=== PATIENT | female | born 1995 | race Caucasian/White ===

== ENCOUNTER 2020-11-15 14:55 | Emergency (ER) | payer MEDICAID ==
[2020-11-15] MEDS ORDERED: Ketorolac 60 MG/2 ML SDV IM ONE (15:21)
--- NOTE | 2020-11-15 15:21 | EDM.PDOC ---
ED HPI GENERAL MEDICAL PROBLEM - General Chief Complaint: Lower Extremity Injury/Pain Stated Complaint: R knee injury Time Seen by Provider: 11/15/20 15:05 Source of Information: Reports: Patient History Limitations: Reports: No Limitations - History of Present Illness INITIAL COMMENTS - FREE TEXT/NARRATIVE: This patient is a 25 year old female that presents to the ER. Patient reports that she has a condition where her knees dislocate and she puts back in place due to dysplasia Patient reports that it has not done it in over a year, but at work she was just going to grab some chicken when it dislocated on its own. She reports going to the bathroom and reduce it into place herself. Denies falling or other injuries. Onset: Today Onset Date: 11/15/20 Onset Time: 14:00 Location: Reports: Lower Extremity, Right Quality: Reports: Ache Severity: Mild Improves with: Reports: Movement Worsens with: Reports: Immobilization Associated Symptoms: Reports: No Other Symptoms Right Knee Pain Score (Numeric/FACES): 7 - Related Data Allergies Allergy/AdvReac Type Severity Reaction Status Date / Time No Known Allergies Allergy Verified 11/15/20 14:58 Home Meds: Home Meds . [No Known Home Meds] 11/15/20 [History] Past Medical History [employer] History: Reports: Musculoskeletal History: Reports: Other (See Below) Other Musculoskeletal History: knee dysplasia bilateral Psychiatric History: Reports: Anxiety, Depression - Past Surgical History Female Surgical History: Reports: Section, Tubal Ligation Musculoskeletal Surgical History: Reports: Other (See Below) Other Musculoskeletal Surgeries/Procedures:: bilateral club foot surgery Social & Family History - Family History Family Medical History: Unobtainable - Tobacco Use Tobacco Use Status *Q: Current Every Day Tobacco User Years of Tobacco use: 7 Packs/Tins Daily: 1 - Recreational Drug Use Recreational Drug Use: No Review of Systems - Review of Systems Review Of Systems: See Below Constitutional: Reports: No Symptoms Respiratory: Reports: No Symptoms Cardiovascular: Reports: No Symptoms GI/Abdominal: Reports: No Symptoms Musculoskeletal: Reports: Joint Pain (right knee), Joint Swelling (right knee) Skin: Reports: No Symptoms Neurological: Reports: No Symptoms. Denies: Numbness, Tingling Psychiatric: Reports: No Symptoms ED EXAM, GENERAL - Physical Exam Exam: See Below Exam Limited By: No Limitations General Appearance: Alert, WD/WN, No Apparent Distress Respiratory/Chest: No Respiratory Distress, Lungs Clear, Normal Breath Sounds, No Accessory Muscle Use Cardiovascular: Normal Peripheral Pulses, Regular Rate, Rhythm, No Edema Peripheral Pulses: 2+: Popliteal (L), Popliteal (R), Posterior Tibial (L), Posterior Tibial (R), Dorsalis Pedis (L), Dorsalis Pedis (R) Extremities: Normal Inspection, Normal Range of Motion, Normal Capillary Refill, Limited Range of Motion (due to pain of right knee. patella, knee in joint. No obvious deformity. Pulses +2, cap refill < 2 sec, sensory/motor function intact. neurovascular intact. ) Neurological: Alert, Oriented Psychiatric: Normal Affect, Normal Mood Skin Exam: Warm, Dry, Intact, Normal Color, No Rash Course - Vital Signs Last Recorded V/S: Last Vital Signs Temp 98.2 F 11/15/20 14:56 Pulse 63 11/15/20 14:56 Resp 16 11/15/20 14:56 BP 141/86 H 11/15/20 14:56 Pulse Ox 100 11/15/20 14:56 - Orders/Labs/Meds Orders: Active Orders 24 hr Category Date Time Status Knee 3V Rt [CR] Stat Exams 11/15/20 15:20 Ordered Meds: Medications Discontinued Medications Generic Name Dose Route Start Last Admin Trade Name Luis Carlosq PRN Reason Stop Dose Admin Ketorolac Tromethamine 60 mg 11/15/20 15:21 11/15/20 15:29 Ketorolac 60 Mg/2 Ml Sdv IM 11/15/20 15:22 60 mg ONETIME ONE Administration - Radiology Interpretation Free Text/Narrative:: Right knee Xray: No fracture, no dislocation, no FB. Departure - Departure Time of Disposition: 15:50 Disposition: Home, Self-Care 01 Condition: Good Clinical Impression: Right knee sprain Qualifiers: Encounter type: initial encounter Involved ligament of knee: other ligament Qualified Code(s): S83.8X1A - Sprain of other specified parts of right knee, initial encounter - Discharge Information *PRESCRIPTION DRUG MONITORING PROGRAM REVIEWED*: Not Applicable *COPY OF PRESCRIPTION DRUG MONITORING REPORT IN PATIENT ADRIEN: Not Applicable Instructions: Knee Sprain, Adult, [id number] Forms: ED Department Discharge Additional Instructions: Followup with your primary care provider if pain continues after 10-14 days Return to the ER for worsening of condition or any emergent concerns such as fever, redness, vomiting Rest Ice Elevate Knee Immobilizer as needed Crutches as needed Tylenol or IbuProfen as needed for pain Sepsis Event Note (ED) - Evaluation Sepsis Screening Result: No Definite Risk - Focused Exam Vital Signs: Vital Signs Temp Pulse Resp BP Pulse Ox 11/15/20 14:56 98.2 F 63 16 141/86 H 100 - My Orders Last 24 Hours: My Active Orders 11/15/20 15:20 Knee 3V Rt [CR] Stat - Assessment/Plan Last 24 Hours: My Active Orders 11/15/20 15:20 Knee 3V Rt [CR] Stat Plan: PLEASE SEE RN NOTE FOR PFSH
== END 2020-11-15 16:03 | disposition home or self-care (01) ==
LOC: CC.ED 14:55
DX: S83.8X1A Sprain of other specified parts of right knee, initial encounter (principal); Z72.0 Tobacco use; X58.XXXA Exposure to other specified factors, initial encounter
CPT/HCPCS: 73562; 96372; 99283; J1885